=== PATIENT | male | born 1965 | race Caucasian/White ===

== ENCOUNTER 2017-10-14 17:58 | Emergency (ER) | payer OTHER ==
[~2017-10-14] VITALS: Ht 177.8 cm; Wt 98.5 kg
[2017-10-14 18:02] VITALS: BP 115/70; PULSE 106; RESP 20; TEMP 98.9; O2SAT 96
--- NOTE | 2017-10-14 18:30 | PD ---
HPI Chief Complaint: Cold / Flu Symptoms Time Seen by Provider: 18:08 Travel History International Travel<30 days: No Contact w/Intl Traveler<30days: No Traveled to known affect area: No History of Present Illness HPI 51-year-old male with PMH of chronic diarrhea 3 months presents to the ED for evaluation of less than 24 hour history of body aches, sinus congestion, headaches, nonproductive cough. Patient endorses low-grade fever. He denies abdominal pain, nausea, vomiting. He states that he's been having recurrent nonbloody, nonbilious diarrhea. He also states that he's been experiencing urinary urgency with small amount of urine voided. He denies penile pain, penile discharge, perineal pain, testicular pain. He endorses low back pain. He's been treating at home with ibuprofen every 4 hours. He states that his also been taking [facility]. He did not receive this years flu vaccine. He is unsure of any sick contacts. [facility] Past Medical History Medical History: Denies Significant Hx Influenza Vaccination: No Past Surgical History Surgical History: No Previous Surgery Social History Alcohol Use: Yes (couple times per week) Tobacco Use: No Substance Use: No Allergies-Medications (Allergen,Severity, Reaction): Coded Allergies: No Known Allergies (Unverified , 10/14/17) Reported Meds & Prescriptions Reported Meds & Active Scripts Active Cipro (Ciprofloxacin HCl) 500 Mg Tab 500 Mg PO BID 7 Days Review of Systems Except as stated in HPI: all other systems reviewed are Neg Physical Exam Narrative GENERAL: Well-nourished, well-developed white male in no acute distress. SKIN: Warm and dry. HEAD: Normocephalic. Atraumatic. EYES: No scleral icterus. No injection or drainage. PERRLA. EOMI. ENT: Pearly arana tympanic membranes bilaterally. Nasal mucosa is moist. Oropharynx without erythema, edema or exudate. NECK: Supple, trachea midline. No JVD or lymphadenopathy. CARDIOVASCULAR: Regular rate and rhythm without murmurs, gallops, or rubs RESPIRATORY: Breath sounds clear and equal bilaterally. No accessory muscle use. GASTROINTESTINAL: Abdomen soft, non-tender, nondistended. + Bowel sounds MUSCULOSKELETAL: No cyanosis, or edema. BACK: Nontender without obvious deformity. No CVA tenderness. Data Data Last Documented VS Vital Signs Date Time Temp Pulse Resp B/P (MAP) Pulse Ox O2 Delivery O2 Flow Rate FiO2 10/14/17 18:02 98.9 106 20 115/70 (85) 96 Orders Orders Influenzae A/B Antigen (10/14/17 18:19) Urinalysis - C+S If Indicated (10/14/17 18:27) Urine Culture (10/14/17 18:30) Ciprofloxacin (Cipro) (10/14/17 19:30) Labs Laboratory Tests Test 10/14/17 18:30 Urine Collection Type CLEAN CATCH Urine Color YELLOW Urine Turbidity SLIGHT Urine pH 6.0 Urine Specific [place] 1.025 Urine Protein TRACE mg/dL Urine Glucose (UA) NEG mg/dL Urine Ketones 15 mg/dL Urine Occult Blood TRACE Urine Nitrite POS Urine Bilirubin NEG Urine Leukocyte Esterase SMALL Urine RBC 4-9 /hpf Urine WBC 100-200 /hpf Urine WBC Clumps FEW Urine Squamous Epithelial Cells 6-8 /hpf Urine Bacteria MANY /hpf Microscopic Urinalysis Comment CULTURE INDICATED Urine Collection Time 18:30 MDM Medical Decision Making Medical Screen Exam Complete: Yes Emergency Medical Condition: Yes Differential Diagnosis Viral syndrome versus influenza versus chronic diarrhea versus UTI versus Narrative Course 51-year-old male with PMH of chronic diarrhea 3 months presents to the ED for evaluation of less than 24 hour history of body aches, sinus congestion, headaches, nonproductive cough, low-grade fever dysuria and urinary urgency. He denies abdominal pain, nausea, vomiting, penile discharge, penile pain, perineal pain, testicular pain, anal sex. The patient is afebrile on presentation. ENT exam is unremarkable. Abdominal exam is unremarkable. No CVA tenderness. Rapid flu swab negative. UA positive for nitrites, small leukocyte esterase, 100, few cocci, many bacteria. This is UTI. Patient is prescribed Cipro 500 mg twice a day 7 days. First is administered in the ED. He was instructed to take every dose of medication until they're all gone, continue with symptomatically treatment with OTC medications, follow up with his primary care provider. He indicated understanding of the instructions and is agreeable with the care plan. He is stable and discharged home. Diagnosis Primary Impression: Urinary tract infection Qualified Codes: N30.00 - Acute cystitis without hematuria Referrals: Primary Care Physician Patient Instructions: General Instructions, Urinary Tract Infection in Men (ED) Additional Instructions: Rest, hydrate. Take every dose of antibiotic and told every pill is gone. Take Zofran as needed for nausea. Continue with alternating Tylenol and Motrin as needed for body aches, fever. Follow-up with the primary care provider. Return to the ED for worsening symptoms or any urgent or emergent medical condition. Med/Other Pt SpecificInfo: Prescription(s) given Scripts Ciprofloxacin (Cipro) 500 Mg Tab 500 MG PO BID for Infection for 7 Days, #14 TAB 0 Refills Prov: Noemi Acosta MD 10/14/17 Disposition: 01 DISCHARGE HOME Condition: Stable Jaylene Fernandez Oct 14, 2017 18:30
[2017-10-14 18:34] LABS: BILIRUBIN, URINE NEG (NEG); BLOOD, URINE TRACE (NEG); GLUCOSE,URINE NEG (NEG); KETONE, URINE 15 mg/dL (NEG); NITRITE,URINE POS (NEG); URINE LEUKOCYTE ESTERASE SMALL (NEG)
[2017-10-14 18:50] LABS: URINE COLOR YELLOW (YELLW/STRAW)
[2017-10-14 18:53] LABS: BACTERIA, URINE MANY /hpf; WBC, URINE 100-200 /hpf (0-5); WHITE BLOOD CELL CLUMPS FEW
[2017-10-14] MEDS ORDERED: CIPR-9 PO (19:15)
[2017-10-14] MEDS ORDERED: CIPROFLOXACIN 500 MG TAB PO ONE (19:30)
== END 2017-10-14 19:25 | disposition home or self-care (01) ==
LOC: PHEFT 17:58
DX: N39.0 Urinary tract infection, site not specified (principal); B96.20 Unspecified Escherichia coli [E. coli] as the cause of diseases classified elsewhere; R39.15 Urgency of urination
CPT/HCPCS: 81001; 87077; 87086; 87186; 87804; 99283